=== PATIENT | female | born 2000 | race African-American/Black ===

== ENCOUNTER 2023-09-05 10:28 | Outpatient (CLI) | payer MEDICAID, SELFPAY ==
[2023-09-05 12:43] LABS: HIV 1/2 Ab P24 Ag Result Negative (Negative)
[2023-09-05 13:46] LABS: Hepatitis B Surface Antigen Negative (Negative)
[2023-09-05 13:49] LABS: HAV RESULT Negative (Negative); Hepatitis B Core IgM Result Negative (Negative)
[2023-09-05 14:01] LABS: Hepatitis C Virus Antibody Negative (Negative)
[2023-09-05 16:04] LABS: Rapid Plasma Reagin Non-Reactive (NonReactive)
== END 2023-09-05 10:29 | disposition home or self-care (01) ==
LOC: ANHGOSHLAB 10:31
PROVIDERS: Obstetrics & Gynecology; Visit Provider Obstetrics & Gynecology
DX: Z11.3 Encounter for screening for infections with a predominantly sexual mode of transmission (principal); N91.2 Amenorrhea, unspecified
CPT/HCPCS: 36415; 80074; 84702; 86592; 86695; 86696; 86703; G0432